=== PATIENT | male | born 1980 | race Caucasian/White ===

== ENCOUNTER → 2020-11-09 11:26 | Outpatient (CLI) | payer OTHER, SELFPAY ==
--- NOTE | ~2020-11-09 | XR_ITS ---
EXAMINATION: XR finger 1st RT min 2V DATE: 11/09/2020 13:17 INDICATION: Pain and swelling at the right first metacarpophalangeal joint following fall [place] in [place]. TECHNIQUE: Dorsal palmar, lateral and oblique views of the right first digit were obtained COMPARISON: None FINDINGS: Bone alignment is normal. There is irregular cortical contour at the ulnar side of the base of the fi rst proximal phalanx with adjacent minute calcific density which suggests possibility of avulsion fra cture of the distal insertion of the ulnar collateral ligament. No other lesions suspicious for fract ure identified. Joint spaces are normal. Soft tissue swelling about the head of the first metacarpal. IMPRESSION: 1. Suggestion of a minute distal ulnar collateral ligament avulsion fracture at the ulnar base of the first proximal phalanx. Reviewed, dictated and finalized at location A.
== END ==
PROVIDERS: PCP Family Medicine; Visit Provider Family Medicine
DX: M79.646 Pain in unspecified finger(s) (principal)
CPT/HCPCS: 73140

== ENCOUNTER 2022-02-23 07:44 | Outpatient (CLI) | payer OTHER, SELFPAY ==
[2022-02-23 08:12] LABS: Cholesterol 201 mg/dL (0-200); HDL Direct 43 mg/dL; Triglycerides 87 mg/dL (<150)
[2022-02-23 08:23] LABS: LDL Cholesterol Direct 126 mg/dL
[2022-02-23 08:41] LABS: Prostate Specific Antigen 0.6 ng/mL (< OR = 4.0)
== END 2022-02-23 07:45 | disposition home or self-care (01) ==
LOC: ANHLAB 07:45
PROVIDERS: PCP Family Medicine; Visit Provider Physician Assistant
DX: E78.00 Pure hypercholesterolemia, unspecified (principal); R35.1 Nocturia
CPT/HCPCS: 36415; 80061; 84153